=== PATIENT | male | born 1955 | race Two or more races ===

== ENCOUNTER 2020-06-19 13:20 | Emergency (ER) | payer OTHER ==
[~2020-06-19] VITALS: Ht 177.8 cm; Wt 88.5 kg
[2020-06-19] MEDS ORDERED: TOPROL XL50 M1 (14:06)
[2020-06-19] MEDS ORDERED: LEVSIN0.125 MG (14:16)
[2020-06-19] MEDS ORDERED: NEXIUM40 M1 (14:16)
[2020-06-19] MEDS ORDERED: ZOFRAN4 MG (14:16)
[2020-06-19] MEDS ORDERED: PEPCID AC20 MG (14:17)
[2020-06-19] MEDS ORDERED: LAXA CLEAR1530 GM (14:17)
[2020-06-19] MEDS ORDERED: NEO/POLYMYXIN/H10 M1 (14:18)
== END 2020-06-20 11:00 | disposition designated cancer center or children's hospital (05) ==
LOC: ER 13:20
DX: D49.6 Neoplasm of unspecified behavior of brain (principal); R47.1 Dysarthria and anarthria; R47.01 Aphasia; R29.810 Facial weakness; R42 Dizziness and giddiness; S40.022A Contusion of left upper arm, initial encounter; K29.60 Other gastritis without bleeding; W18.09XA Striking against other object with subsequent fall, initial encounter; Y93.89 Activity, other specified; Y92.012 Bathroom of single-family (private) house as the place of occurrence of the external cause; Y99.8 Other external cause status; Z03.818 Encounter for observation for suspected exposure to other biological agents ruled out
CPT/HCPCS: 70552